=== PATIENT | male | born 1980 | race Hispanic/Latino ===

== ENCOUNTER 2018-02-06 11:52 | Inpatient (IN) ==
[2018-02-06 12:59] LABS: BASO# 0.01 X1000 (0.0-0.2); BASO% 0.1 % (0.0-0.8); EOS# 0.16 X1000 (0.0-0.7); EOS% 1.8 % (0.0-10.0); HEMATOCRIT 46.5 % (42.0-52.0); IMM GRAN# 0.03 X1000 (0.0-0.04); IMM GRAN% 0.3 % (0.0-0.5); LYMPH# 1.61 X1000 (1.2-3.4); LYMPH% 17.9 % (20.5-51.1); MCH 30.5 PG (27-31); MCHC 34.4 g/dL (33-37); MCV 88.7 FL (81-99); MONO# 0.71 X1000 (0.11-0.59); MONO% 7.9 % (1.7-9.3); MPV 10.6 FL (7.4-10.4); NEUT# 6.49 X1000 (1.4-6.5); PLT 260 X1000 (130-400); RBC 5.24 XMIL (4.7-6.1); RDW 12.5 % (11.5-14.5); WBC 9.01 X1000 (4.8-10.8)
[2018-02-06 13:14] LABS: INR 0.89; PROTIME 12.5 Seconds (11.0-16.0)
[2018-02-06 13:18] LABS: AGAP 17; ALBUMIN 4.1 g/dL (3.5-5.0); ALKALINE PHOSPHATASE 114 U/L (32-122); BUN 9 mg/dL (8-22); CALCIUM 9.8 mg/dL (8.8-10.2); CHLORIDE 99 mmol/L (98-107); COSMO 273; CREATININE 0.7 mg/dL (0.7-1.2); ESTIMATED GFR > 60; GLUCOSE 106 mg/dL (70-104); GOT 56 U/L (10-34); GPT 59 U/L (10-44); POTASSIUM 3.7 mmol/L (3.5-5.1); SODIUM 137 mmol/L (136-145); TCO2 21 mmol/L (25-35); TOTAL PROTEIN 8.5 g/dL (6.3-8.3)
[2018-02-06] MEDS ORDERED: NS 3,000 ML IV ONE (14:25)
[2018-02-06] MEDS ORDERED: VANCOMYCIN IV PER PHARMACY MISC SCH (14:45)
--- NOTE | 2018-02-06 14:59 | Diag Imaging Result Doc PS360 ---
EXAM: LOWER LEG-LEFT - 02/06/2018 HISTORY: cellulitis TECHNIQUE: Left lower leg four views COMPARISON: None. FINDINGS: There is no fracture identified. There are no erosive or destructive changes identified. There is no opaque foreign body identified. There is no obvious subcutaneous gas collection. IMPRESSION: Unremarkable exam. Electronically signed by Nicola Mohan 02/06/2018 2:56 PM
[2018-02-06] MEDS ORDERED: BOOSTRIX VACCINE IM ONE (15:06)
--- NOTE | 2018-02-06 15:28 | PROVIDER DOCUMENTATION ---
This chart was entered by Tiara Bartholomew Scribe, acting as scribe for Vel Thomas MD. HPI-Musculoskeletal Pain/Inj - GENERAL Chief Complaint: Extremity Injury Stated Complaint: LEFT LEG SWOLLEN AND INFECTED Time Seen by Provider: 02/06/18 14:14 Source: patient - HX OF PRESENT ILLNESS-MUSKULOSKELTAL Nature of Presenting Problem: 37 yom presents to ed with cc of lle pain and swelling. Language line was used pt reports he was at work 3 days ago at [employer] and cut his left lower extremity. Reports last night started swelling and becoming red. On arrival pt is tachy and has a fever of 100.00. Quality of Pain: reports: aching Severity in ED: moderate Onset/Duration: 3 days ago, last night Timing: still present, getting worse Review of Systems - Adult - REVIEW OF SYSTEMS - ADULT Constitutional: reports: fever. denies: chills, fatique Eyes: reports: no symptoms reported Ears, Nose, Mouth & Throat: reports: no symptoms reported Cardiovascular: denies: chest pain, irregular heart rate, PND, syncope Respiratory: denies: cough, shortness of breath, wheezing Gastrointestinal: reports: no symptoms reported Genitourinary: reports: no symptoms reported Musculoskeletal: reports: see HPI, other (LLE swelling and erythema). denies: joint pain, joint swelling, muscle weakness, neck pain Integumentary: reports: other (LLE swelling and erythema) Neurological: reports: no symptoms reported Psychiatric: reports: no symptoms reported Endocrine: reports: no symptoms reported Hematologic/Lymphatic: reports: no symptoms reported Allergic/Immunologic: reports: no symptoms reported All Other Systems: Reviewed and Negative Past History - Adult - PAST MEDICAL HISTORY-ADULT Review of Records: reports: Nursing Assessment Review, Medications Reviewed Major Childhood Illnesses: reports: denies history Cardiovascular: reports: denies history Respiratory: reports: denies history Gastrointestinal: reports: denies history Obstetrical/Gynecological: reports: denies history Genitourinary: reports: denies history Musculoskeletal: reports: denies history Neurological: reports: denies history Endocrine/Immune: reports: denies history Other Conditions: reports: denies history - IMMUNIZATION STATUS Childhood Immunizations: See Nurse Assessment Flu Vaccine: See Nurse Assessment - FAMILY HISTORY Family History: reviewed, not pertinent - SOCIAL HISTORY Smoking: cigarettes, less than 1 pack/day Provider spent 3-5 mins advising pt. on dangers of tobacco.: Discussed manners to quit use, and f/u contacts for add'l counseling. Substance Use: none/never Physical Exam-Injury Related - Physical Exam-Injury Related Initial Vital Signs Reviewed: Yes General Appearance: appears well, alert, no apparent distress Eyes: PERRL/EOMI, pink conjunctivae Head, Ears, Nose, Mouth & Throat: moist mucous membranes Neck: non-tender, full range of motion, supple, normal inspection Respiratory: chest non-tender, lungs clear, normal breath sounds, no pleuratic chest pain, no respiratory distress, no accessory muscle use Cardiovascular: regular rate, rhythm, tachycardia Peripheral Pulses: dorsalis-pedis (R): 2+, dorsalis-pedis (L): 2+ Abdominal Exam: non tender, soft, no organomegaly, no pulsatile mass Extremity: normal range of motion, non-tender, normal gait, erythema (LLE), swelling (LLE) Integumentary: normal color, other (LLE 3cm open jagged wound with swelling and erythema) Neurologic: grossly normal Psych/Mental Status: normal mood/affect, normal thought content, normal thought process, oriented x 3 - Glascow Coma Score Best Eye Response ([place]): (4) open spontaneously Best Verbal Response ([place]): (5) oriented Best Motor Response ([place]): (6) obeys commands [place] Total: 15 Progress - PLAN OF CARE/RESULTS Progress/Plan/Lab Results: Vital Signs - 8 hr 02/06/18 12:07 02/06/18 14:31 Temperature 100 F H 100 F H Pulse Rate 131 H 109 H Respiratory Rate 22 31 H Blood Pressure 138/93 140/87 O2 Sat by Pulse Oximetry 95 95 Laboratory Results - last 24 hr 02/06/18 02/06/18 02/06/18 12:36 12:36 12:36 WBC 9.01 RBC 5.24 Hgb 16.0 Hct 46.5 MCV 88.7 MCH 30.5 MCHC 34.4 RDW Std Deviation 12.5 Plt Count 260 MPV 10.6 H Immature Gran % (Auto) 0.3 Neut % (Auto) 72.0 Lymph % (Auto) 17.9 L [place] % (Auto) 7.9 Eos % (Auto) 1.8 Baso % (Auto) 0.1 Immature Gran # (Auto) 0.03 Neut # (Auto) 6.49 Lymph # (Auto) 1.61 [place] # (Auto) 0.71 H Eos # (Auto) 0.16 Baso # (Auto) 0.01 PT INR Sodium 137 Potassium 3.7 Chloride 99 Carbon Dioxide 21 L Anion Gap 17 BUN 9 Creatinine 0.7 Estimated GFR/1.73 m2 > 60 BUN/Creatinine Ratio 13 Glucose 106 H Calculated Osmolality 273 Calcium 9.8 Total Bilirubin 0.80 AST 56 H ALT 59 H Alkaline Phosphatase 114 Total Protein 8.5 H Albumin 4.1 Globulin 4.0 Albumin/Globulin Ratio 1.0 Plasma Lactate 2.3 H 02/06/18 12:36 WBC RBC Hgb Hct MCV MCH MCHC RDW Std Deviation Plt Count MPV Immature Gran % (Auto) Neut % (Auto) Lymph % (Auto) [place] % (Auto) Eos % (Auto) Baso % (Auto) Immature Gran # (Auto) Neut # (Auto) Lymph # (Auto) [place] # (Auto) Eos # (Auto) Baso # (Auto) PT 12.5 INR 0.89 Sodium Potassium Chloride Carbon Dioxide Anion Gap BUN Creatinine Estimated GFR/1.73 m2 BUN/Creatinine Ratio Glucose Calculated Osmolality Calcium Total Bilirubin AST ALT Alkaline Phosphatase Total Protein Albumin Globulin Albumin/Globulin Ratio Plasma Lactate Orders Category Date Time Status CHEST-1 VIEW [RAD] Stat Exams 02/06/18 15:08 Ordered LOWER LEG-LEFT [RAD] Stat Exams 02/06/18 14:29 Completed ABG [RESP] Routine Lab 02/06/18 15:11 Ordered ABSCESS CULTURE INC GRAM STAIN [RM] Routine Lab 02/06/18 15:12 Ordered BLOOD CULTURE [BLDCUL] Stat Lab 02/06/18 12:40 Ordered BLOOD CULTURE [BLDCUL] Stat Lab 02/06/18 14:26 Ordered CBC WITH DIFF [HEME] Stat Lab 02/06/18 12:36 Completed CK TOTAL [CHEM] Stat Lab 02/06/18 15:05 Ordered COMPREHENSIVE METABOLIC PANEL [CHEM] Stat Lab 02/06/18 12:36 Completed LACTATE, PLASMA [CHEM] Stat Lab 02/06/18 12:36 Completed LACTATE, PLASMA [CHEM] Stat Lab 02/06/18 15:36 Ordered MAGNESIUM [CHEM] Stat Lab 02/06/18 15:11 Uncollected PROTIME WITH INR [COAG] Stat Lab 02/06/18 12:36 Completed PTT [COAG] Stat Lab 02/06/18 15:05 Uncollected TROPONIN T Stat Lab 02/06/18 15:[address] W/POSS RFLX CULT [URINALYSIS] Stat Lab 02/06/18 15:12 Ordered WOUND CULTURE INC GRAM STAIN [RM] Routine Lab 02/06/18 15:09 Ordered ua [URINALYSIS PL W/POSS RFLX CULT] [URINALYSIS] Stat Lab 02/06/18 15:07 Uncollected 0.9% Sodium Chloride Inj [Ns] 3,000 ml Med 02/06/18 14:25 Active IV 999 mls/hr Diph,Pertuss(Acell),Tet Vac/Pf [Boostrix Vaccine] Med 02/06/18 15:06 Discontinued 0.5 ml IM .ONCE ONE Pharmacy Order [Vancomycin IV Per Pharmacy] Med 02/06/18 14:45 Active 1 each MISC DIRECTED Piperacillin/Tazobactam [Zosyn] 3.375 gm Med 02/06/18 14:45 Active 0.9% Sodium Chloride Inj [Ns] 50 ml IV Q6H Vancomycin 2,000 mg Med 02/06/18 16:00 Active 0.9% Sodium Chloride Inj [Ns] 500 ml IV Q12H Result Diagrams: 02/06/18 12:36 02/06/18 12:36 - XRAY 1 XRAY: Left XRAY Study: other (lower extremity) Impression: Normal (FINDINGS: There is no fracture identified. There are no erosive or destructive changes identified. There is no opaque foreign body identified. There is no obvious subcutaneous gas collection. IMPRESSION: Unremarkable exam. Electronically signed by Nicola Mohan 02/06/2018 2:56 PM) - CONSULTS/PCP/HOSPITALIST Notification #1 *Consult/PCP/Hospitalist*: Dr. Lamar Time Discussed: 14:30 Consult Disposition: Admit Departure - Departure Date of Disposition Decision: 02/06/18 Time of Disposition Decision: 14:30 DIAGNOSIS: Cellulitis Qualifiers: Site of cellulitis: extremity Site of cellulitis of extremity: lower extremity Laterality: left Qualified Code(s): L03.116 - Cellulitis of left lower limb Disposition: ADMITTED INPATIENT 09 Certified Medical Emergency: Emergent Condition: Stable Referrals and Follow-Ups: None,PCP [Primary Care Provider] - - Critical Care Note This patient required my direct & personal management of CC.: Yes Total Time (mins): 30 Critical Care Statement: This patient required my direct personal management to treat or rule out processes, the absence of which, could potentiallly result in sudden, clinically significant life or limb threatening deterioration. Attestation - Physician/ MARTA Attestation Patient care was provided by Advanced Practice Provider:: No The physician spent face to face time with patient:: Yes Advanced Practice Provider documentation review:: Supervising physician onsite and consulted in the evaluation and care of this patient. The physician did have a face to face encounter with the patient. This chart was documented by the indicated scribe, (Tiara Bartholomew Scribe) and accurately reflects the services I performed and decisions made by me, Vel Thomas MD, as attested by the provider's signature.
--- NOTE | 2018-02-06 15:36 | Diag Imaging Result Doc PS360 ---
EXAM: CHEST-1 VIEW - 02/06/2018 HISTORY: sepsis TECHNIQUE: Portable chest COMPARISON: None. FINDINGS: Heart size appears within normal limits. There are calcified right hilar lymph nodes from old granulomatous disease. There is no consolidation, pleural effusion, or pneumothorax identified. IMPRESSION: No evidence of acute disease. Electronically signed by Nicola Mohan 02/06/2018 3:33 PM
[2018-02-06] MEDS: ZOSYN 3.375 GM in NS 50 ML IV SCH ×2 (15:38→20:36)
[2018-02-06] MEDS ORDERED: VANCOMYCIN 2,000 MG in NS 500 ML IV SCH (16:00)
[2018-02-06 16:13] LABS: BILIRUBIN URINE NEGATIVE (NEGATIVE); BLOOD URINE 1+ (NEGATIVE); CLARITY SL. CLOUDY (CLEAR); COLOR AMBER; GLUCOSE URINE NEGATIVE (NEGATIVE); KETONE URINE TRACE mg/dL (NEGATIVE); LEUKOCYTES URINE 1+ (NEGATIVE); NITRITE URINE POSITIVE (NEGATIVE); PH URINE 6.5; PROTEIN URINE 2+(100 mg/dL) mg/dL (NEGATIVE); UROBILINOGEN URINE 4 mg/dL
[2018-02-06 16:23] LABS: URINE BACTERIA 1+ /HFP; URINE CAST NONE SEEN /LPF; URINE CRYSTAL NONE SEEN /HPF; URINE EPITHELIAL CELLS <10 /HPF (<10); URINE RBC <10 /HPF (<10); URINE SOURCE CLEAN CATCH; URINE WBC <10 /HPF (<10); URINE YEAST NONE SEEN /HPF
[2018-02-06 16:24] LABS: BE -0.4 mmoll (-3.0-3.0); BLOOD TYPE ARTERIAL; HCO3-(ACT) 24.5 mmoll (20.0-26.0); METHB 1.2 % (0.0-1.5); O2(CT) 19.6 mL/dL (15.0-23.0); PCO2(98.6) 33 mmHg (35-45); PO2(98.6) 80 mmHg (60-100); SAMPLE BLOOD; SAO2 97.2 % (95.0-100.0); THB 14.8 g/dL (11.5-17.4); pH(98.6) 7.45 (7.35-7.45)
[2018-02-06 16:28] LABS: ALLEN TEST YES; MODALITY CANNULA
--- NOTE | 2018-02-06 17:21 | HISTORY AND PHYSICAL ---
PRIMARY CARE PHYSICIAN: None. 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 HISTORY OF PRESENTING ILLNESS: This is a 37-year-old male who does not speak Wolof presents to [facility] ER with complaints of left lower extremity pain and swelling. 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 Last night it began to swell and become red, it is noted to be erythematous, edematous, warm to touch. He has a low-grade fever on arrival of 100, tachycardic at 131. Laboratory data was fairly unremarkable. No elevation in his white blood cells. He did have a mild elevation in his LFTs. His creatine kinase was 1460, plasma lactate was mildly elevated at 2.3 with normal being 2.2 so he will be admitted for further evaluation and treatment. PAST MEDICAL HISTORY: None. PAST SURGICAL HISTORY: None. FAMILY HISTORY: Reviewed and noncontributory. SOCIAL HISTORY: Currently lives with family. Smokes a half a pack of cigarettes a day. Denies any alcohol or illicit drug use. ALLERGIES: He has no known drug allergies. HOME MEDICATIONS: He does not list any routine medications at this time. LABORATORY DATA: Showed a white blood cell count of 9.01, hemoglobin 16, hematocrit 46.5, platelets 260,000, PT and INR 12.5 and 0.89, sodium 137, potassium 3.7, chloride 99, CO2 21, BUN of 9, creatinine 0.7, glucose 106, AST of 56, ALT 59, creatine kinase of 1460, plasma lactate of 2.3. We did do a left lower extremity x-ray that showed an unremarkable exam. Chest x-ray showed no evidence of acute disease. REVIEW OF SYSTEMS: He had a subjective fever. Denied any blurred vision, dizziness, chest pain, coughing, shortness of breath. Denied any abdominal pain, constipation, diarrhea, burning or hurting with urination. Was positive for left lower extremity pain. PHYSICAL EXAMINATION: On arrival he had a temperature of 100 degrees, pulse 131, respirations 22, blood pressure 138/93, saturating 95% on room air. Currently his heart rate is down to 109. GENERAL: This is a 37-year-old male lying in the bed. HEENT: Normocephalic, atraumatic. Normal ENT inspection. Oropharynx and nares are clear. Pupils are equal, round, reactive to light and accommodation. Extraocular movements are intact. NECK: Normal on inspection. Normal range of motion. LUNGS: Clear to auscultation bilaterally with equal lung expansion and chest wall movement. HEART: With regular rate and rhythm. No murmurs, rubs, or gallops. ABDOMEN: Soft, nontender, nondistended. Bowel sounds are present x4 quadrants. EXTREMITIES: Patient is noted to have to his left lower extremity on the acuña erythema, edema, warmth to touch. There is a 3 cm open jagged wound noted on the acuña also. MUSCULOSKELETAL: 5/5 strength in 4 extremities. NEUROLOGICAL: Cranial nerves 2-12 appear grossly intact. ASSESSMENT: 1. Left lower extremity cellulitis. 2. Rhabdomyolysis. 3. Sepsis secondary to #1. 4. Tobacco abuse. PLAN: He is being admitted to the medical unit at [facility], placed on vancomycin per pharmacy protocol, Zosyn 3.375 g IV q.6. Wound culture, abscess culture pending. Urinalysis pending. He was given a tetanus shot in the emergency room. We will recheck a CBC, BMP in the a.m. We will also place him on normal saline at 75 mL an hour. Dictated by MALACHI Argueta for Checo Lamar MD cc: MALACHI Argueta MD
[2018-02-06] MEDS: NS 1,000 ML IV SCH (18:31)
[2018-02-06] MEDS ORDERED: TYLENOL PO PRN (20:05)
[2018-02-06] MEDS ORDERED: ZOFRAN IV PRN (20:05)
[2018-02-06] MEDS: VANCOMYCIN 2,000 MG in NS 500 ML IV SCH (20:37)
--- NOTE | 2018-02-06 20:37 | HISTORY AND PHYSICAL ---
HISTORY AND PHYSICAL ADDENDUM: The patient is . He came in today because of pain in his left leg. 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 No previous history of infection. He is not diabetic. There is question, though, if he has a UTI as well. But he has no complaints about it. In any case, his left leg is swollen and erythematous and irritated, and he is in some degree of discomfort. We will admit him for cellulitis. There is no clear evidence of abscess at this point. Consider a Doppler tomorrow, although I think this is very clearly cellulitis of his left lower extremity. We will continue empiric antibiotics, vancomycin and Unasyn, and follow. If not much improved in the next day or two, may have to consider further imaging. This is a [id number] encounter note with Vangie Knox. cc: Checo Lamar MD
[2018-02-06] MEDS: NORCO-5 PO PRN (20:46)
[2018-02-07] MEDS: ZOSYN 3.375 GM in NS 50 ML IV SCH ×4 (01:55→20:08)
[2018-02-07 06:31] LABS: BASO# 0.02 X1000 (0.0-0.2); BASO% 0.2 % (0.0-0.8); EOS# 0.08 X1000 (0.0-0.7); EOS% 0.8 % (0.0-10.0); HEMATOCRIT 40.7 % (42.0-52.0); HEMOGLOBIN 13.8 g/dL (14.0-18.0); IMM GRAN# 0.02 X1000 (0.0-0.04); IMM GRAN% 0.2 % (0.0-0.5); LYMPH# 1.62 X1000 (1.2-3.4); LYMPH% 16.2 % (20.5-51.1); MCH 30.7 PG (27-31); MCHC 33.9 g/dL (33-37); MCV 90.4 FL (81-99); MONO# 0.85 X1000 (0.11-0.59); MONO% 8.5 % (1.7-9.3); MPV 10.5 FL (7.4-10.4); NEUT# 7.43 X1000 (1.4-6.5); NEUT% 74.1 % (42.2-75.2); PLT 258 X1000 (130-400); RDW 12.4 % (11.5-14.5); WBC 10.02 X1000 (4.8-10.8)
[2018-02-07] MEDS: NORCO-5 PO PRN ×2 (06:31→20:17)
[2018-02-07 06:39] LABS: AGAP 12; BUN 8 mg/dL (8-22); CALCIUM 8.7 mg/dL (8.8-10.2); CHLORIDE 102 mmol/L (98-107); COSMO 273; CREATININE 0.9 mg/dL (0.7-1.2); ESTIMATED GFR > 60; GLUCOSE 108 mg/dL (70-104); POTASSIUM 3.5 mmol/L (3.5-5.1); SODIUM 137 mmol/L (136-145); TCO2 23 mmol/L (25-35)
[2018-02-07 06:45] LABS: CK PROFILE 576 U/L (24-204)
[2018-02-07 07:12] LABS: CK INDEX 0.7 (0.0-2.5); CK-MB 4.26 ng/mL (0.0-5.0)
[2018-02-07] MEDS: VANCOMYCIN 2,000 MG in NS 500 ML IV SCH ×2 (09:01→20:47)
[2018-02-07] MEDS: NS 1,000 ML IV SCH (11:33)
[2018-02-07] MEDS ORDERED: LASIX PO ONE (16:22)
--- NOTE | 2018-02-07 16:48 | PROGRESS NOTE ---
DATE: 02/07/2018 SUBJECTIVE: Pain seems better. He is smiling. He has very limited [place]ian, so it is difficult to completely get all information, but he seems to be improved. He says it hurts when he ambulates. OBJECTIVE: Vital Signs: Blood pressure 100/60, heart rate 94, respiratory rate 20, temperature 98.7 degrees. Satting 97% on room air. Cardiovascular: Regular rate and rhythm. Pulmonary: Bilateral breath sounds. Clear to auscultation. Gastrointestinal: Abdomen was soft, nontender, nondistended. Bowel sounds are positive. LABORATORY DATA: White count 10, hemoglobin and hematocrit 13 and 40. Platelets 258. Basic was normal. CPK is down. Her micro blood, urine and Gram stain is all negative. PROBLEM LIST: 1. This is a left lower extremity cellulitis with no abscess at this point associated with trauma, but erythema is much improved since yesterday. I think he seems to be doing better from my standpoint. I think probably 1 more day of IV and we can transition him to oral tomorrow and if stable, then he can go home. 2. Sepsis that appears to be resolved. Fevers have abated as well. cc: Checo Lamar MD
[2018-02-08] MEDS: ZOSYN 3.375 GM in NS 50 ML IV SCH ×3 (02:28→14:33)
[2018-02-08 05:46] LABS: HEMATOCRIT 38.8 % (42.0-52.0); HEMOGLOBIN 13.1 g/dL (14.0-18.0); MCH 31.1 PG (27-31); MCHC 33.8 g/dL (33-37); MCV 92.2 FL (81-99); RBC 4.21 XMIL (4.7-6.1); RDW 12.5 % (11.5-14.5); WBC 9.28 X1000 (4.8-10.8)
[2018-02-08 06:05] LABS: AGAP 12; BUN 8 mg/dL (8-22); CALCIUM 8.9 mg/dL (8.8-10.2); CHLORIDE 104 mmol/L (98-107); CK TOTAL 237 U/L (24-204); COSMO 280; CREATININE 1.2 mg/dL (0.7-1.2); ESTIMATED GFR > 60; GLUCOSE 105 mg/dL (70-104); POTASSIUM 3.5 mmol/L (3.5-5.1); SODIUM 141 mmol/L (136-145); TCO2 25 mmol/L (25-35)
[2018-02-08] MEDS ORDERED: FLU VACCINE IM ONE (09:00)
--- NOTE | 2018-02-08 13:51 | Extremity Venous Study ---
EXAM: Venous U/S Left Leg HISTORY: swelling TECHNIQUE: Mendez scale, color Doppler, and duplex evaluation was performed. COMPARISON: None. FINDINGS: The deep veins of the left lower extremity demonstrate appropriate compressibility and augmentation. No intraluminal thrombus is visualized. There is no evidence for DVT. The superficial veins appear patent. IMPRESSION: No evidence for deep venous thrombosis left lower extremity. Electronically signed by Annelise Last 02/08/2018 1:48 PM
--- NOTE | 2018-02-08 15:00 | PROGRESS NOTE ---
DATE: 02/08/2018 SUBJECTIVE: He seems better. It is kind of hard to gauge if he is worse. He still has a lot of pain but, in any case, he seems to be doing okay. OBJECTIVE: Blood pressure is 120/71, heart rate 94, respiratory rate 18, temperature 97, oxygen saturation 93% on room air. Cardiovascular: Regular rate and rhythm. Pulmonary: Bilateral breath sounds clear to auscultation. GI was soft, nontender, nondistended. Bowel sounds are positive. LABORATORY DATA: White count is normal. Hemoglobin and hematocrit is 13 and 38, platelets 236,000. Chemistries look okay. CPK is coming down. PROBLEM LIST: 1. Left lower extremity cellulitis associated with a traumatic injury. It had looked remarkably better yesterday. Anticipate discharge but, today, it is just erythematous past his knee and up into his leg. He had just recently taken a shower; maybe there is some erythema associated with that, but it does not look better now. His vancomycin level is also fairly elevated, which we are readjusting his dose. We may consider switching him to daptomycin. Additionally, I am going to put him on some clindamycin. 2. Rhabdo; that seems better. I am just worried about giving him too much fluid because he already has a lot of swelling. DISPOSITION: Pending improvement in his clinical status. We will go ahead and image his leg and make sure that there are no issues. cc: Checo Lamar MD
[2018-02-08] MEDS: CLINDAMYCIN 600 MG/D5W 600 MG/50 ML IVPB IV SCH ×2 (15:59→23:45)
--- NOTE | 2018-02-08 16:17 | Diag Imaging Result Doc PS360 ---
EXAM: CT EXT LOWER LEFT W/CON HISTORY: worsening cellulitis TECHNIQUE: Axial images were obtained from just above the patella through the toes following IV contrast. 3-D postprocessing. COMPARISON: None. FINDINGS: There is diffuse skin thickening particularly involving the anterior and medial lower leg. There is diffuse subcutaneous septal thickening/edema throughout the lower leg and foot most prominent overlying the medial malleolus. No soft tissue gas is appreciated. No discrete fluid collection with wall enhancement is identified to suggest abscess. MRI with contrast could be considered for further evaluation of potential myositis/septic arthritis as indicated clinically. IMPRESSION: 1.Marked cellulitis. 2.No discrete abscess is appreciated. This exam was performed using automated exposure control, adjustment of mA or kV according to patient size, and/or use of iterative reconstruction technique. Electronically signed by Annelise Last 02/08/2018 4:15 PM
[2018-02-08] MEDS: CULTURELLE PO SCH ×2 (18:48→20:53)
[2018-02-08] MEDS: NORCO-5 PO PRN (20:52)
[2018-02-09] MEDS ORDERED: LOVENOX SUBQ SCH (06:00)
[2018-02-09] MEDS: CLINDAMYCIN 600 MG/D5W 600 MG/50 ML IVPB IV SCH (06:07)
[2018-02-09 06:30] LABS: BASO# 0.01 X1000 (0.0-0.2); BASO% 0.1 % (0.0-0.8); EOS# 0.36 X1000 (0.0-0.7); EOS% 4.4 % (0.0-10.0); HEMATOCRIT 39.9 % (42.0-52.0); HEMOGLOBIN 13.3 g/dL (14.0-18.0); IMM GRAN# 0.02 X1000 (0.0-0.04); IMM GRAN% 0.2 % (0.0-0.5); LYMPH# 1.77 X1000 (1.2-3.4); LYMPH% 21.6 % (20.5-51.1); MCH 30.9 PG (27-31); MCHC 33.3 g/dL (33-37); MCV 92.8 FL (81-99); MONO# 0.86 X1000 (0.11-0.59); MONO% 10.5 % (1.7-9.3); MPV 11.1 FL (7.4-10.4); NEUT# 5.19 X1000 (1.4-6.5); NEUT% 63.2 % (42.2-75.2); PLT 289 X1000 (130-400); RDW 12.4 % (11.5-14.5); WBC 8.21 X1000 (4.8-10.8)
[2018-02-09 06:56] LABS: AGAP 11; BUN 8 mg/dL (8-22); CALCIUM 9.1 mg/dL (8.8-10.2); CHLORIDE 106 mmol/L (98-107); COSMO 287; CREATININE 1.1 mg/dL (0.7-1.2); ESTIMATED GFR > 60; GLUCOSE 100 mg/dL (70-104); SODIUM 145 mmol/L (136-145); TCO2 28 mmol/L (25-35)
[2018-02-09] MEDS: VANCOMYCIN 2,000 MG in NS 500 ML IV SCH ×2 (09:24→10:14)
[2018-02-09] MEDS: CULTURELLE PO SCH ×2 (09:24→21:47)
[2018-02-09] MEDS ORDERED: CULTURELLE FOR KIDS PO SCH (13:00)
[2018-02-09] MEDS ORDERED: CUBICIN 600 MG in NS 100 ML IV SCH (13:00)
[2018-02-09] MEDS: NAFCIL 2 GM in NS 100 ML IV SCH (13:59)
[2018-02-09] MEDS ORDERED: CLINDAMYCIN 900 MG/D5W 900 MG/50 ML IVPB IV SCH (15:00)
--- NOTE | 2018-02-09 15:35 | Diag Imaging Result Doc PS360 ---
EXAM: MRI LOWER EXT W/WO CON-LEFT - 02/09/2018 HISTORY: myositis TECHNIQUE: MRI left lower leg without with contrast. Images are obtained prior to and following gadolinium administration. COMPARISON: 02/08/2018 CT left lower leg FINDINGS: There is subcutaneous edema along the left lower leg which is most prominent medially and is compatible with cellulitis. This enhances mildly following gadolinium administration. There is possibly small sinus tract into the anterior subcutaneous tissues at the proximal lower leg anterior to the tibia. There is no discrete abscess identified. There is no bony erosion or bone marrow edema identified. There is no substantial intramuscular edema identified. IMPRESSION: Cellulitis at left lower leg, medially. Possible small sinus tract into anterior subcutaneous tissues at proximal lower leg anterior to the tibia. No indication of osteomyelitis. No discrete myositis. Electronically signed by Nicola Mohan 02/09/2018 3:32 PM
[2018-02-09] MEDS ORDERED: LASIX PO ONE (16:48)
[2018-02-09] MEDS ORDERED: XYLOCAINE-MPF 2% ONE (18:23)
[2018-02-10] MEDS: NAFCIL 2 GM in NS 100 ML IV SCH ×7 (03:03→22:30)
--- NOTE | 2018-02-10 04:47 | OPERATIVE NOTE ---
PROCEDURE DATE: 02/09/2018 PREOPERATIVE DIAGNOSIS: Left leg cellulitis and abscess. POSTOPERATIVE DIAGNOSIS: Left leg cellulitis and abscess. PROCEDURE: Incision and drainage of left leg abscess. SURGEON: Zackery Arce MD ESTIMATED BLOOD LOSS: 5 mL. COMPLICATIONS: None apparent. FINDINGS: Small amount of purulent fluid was obtained. TECHNIQUE: The skin was prepped with Betadine and sterile drape was placed around the wound. 2% lidocaine was used to anesthetize the skin and subcutaneous tissues around the wound. An 11 blade was used to make an incision around the fluctuant area. I then placed a hemostat in the wound, and followed two tracks medially and laterally, and opened those up as well sharply. There was a small amount of pus drained. The wound was then washed out with Betadine and packed with a 4 x 4 gauze. There were no apparent complications. cc: Zackery Arce MD
--- NOTE | 2018-02-10 04:54 | GENERAL SURGERY CONSULTATION ---
DATE: 02/09/2018 REASON FOR CONSULTATION: Left leg infection, possible abscess. 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 A piece of metal cut his leg. He presented to the ER a few days later with a swollen, red area of the leg, low-grade fever and tachycardia. His creatine kinase was elevated. He subsequently has been placed on vancomycin, then daptomycin and clindamycin, now on nafcillin. He has had imaging, including a lower extremity x-ray, then a lower extremity CT yesterday, and then a lower extremity MRI today, all of which show significant cellulitis, but no discrete abscess or myositis. Clinically, he continues to have significant redness, warmth, swelling, and tenderness with now purulent drainage from the injury site. PAST MEDICAL HISTORY: None. PAST SURGICAL HISTORY: None. HOME MEDICATIONS: None. ALLERGIES: No known drug allergies. SOCIAL HISTORY: He smokes half a pack of cigarettes per day. No alcohol or illicit drug use. FAMILY HISTORY: Reviewed and noncontributory. LABORATORY DATA: White blood cell count 8, hemoglobin 13, hematocrit 89, platelet count 289,000. Electrolytes reviewed and normal. IMAGING: Reviewed and as described above in the HPI. PHYSICAL EXAMINATION: Vital Signs: Temperature 98 degrees, pulse 86, respirations 20, blood pressure 119/70, O2 saturation 98%. General: Well-developed, well-nourished, male in no distress, who looks his stated age. HEENT: Normocephalic, atraumatic. Extraocular muscles intact. Pupils equal, round, and reactive to light. Sclerae anicteric. Moist mucous membranes. Neck: Supple. No thyromegaly. Cardiovascular: Regular rate and rhythm. Respiratory: Bilaterally equal breath sounds. No work of breathing. Gastrointestinal: Soft, nontender, nondistended. No organomegaly or mass. Musculoskeletal: Moves all extremities equally except for pain in the left lower extremity. Extremities: There is 2+ pitting edema in the left lower extremity, with erythema and warmth from the ankle up just to the medial aspect of the knee. There is a open wound in the mid anterior left lower leg with a small amount of purulent drainage. He is very tender around it. ASSESSMENT AND PLAN: A 37-year-old male with marked left lower extremity cellulitis and small abscess after blunt and sharp trauma. I will plan incision and debridement at the bedside today. I have discussed the risks and benefits with him, with the language line. He understands and agrees to proceed. cc: Zackery Arce MD
[2018-02-10 06:55] LABS: BASO# 0.03 X1000 (0.0-0.2); BASO% 0.4 % (0.0-0.8); EOS# 0.31 X1000 (0.0-0.7); EOS% 4.1 % (0.0-10.0); HEMATOCRIT 39.5 % (42.0-52.0); HEMOGLOBIN 13.1 g/dL (14.0-18.0); IMM GRAN# 0.01 X1000 (0.0-0.04); IMM GRAN% 0.1 % (0.0-0.5); LYMPH# 1.82 X1000 (1.2-3.4); LYMPH% 24.1 % (20.5-51.1); MCH 30.5 PG (27-31); MCHC 33.2 g/dL (33-37); MCV 91.9 FL (81-99); MONO# 0.87 X1000 (0.11-0.59); MONO% 11.5 % (1.7-9.3); MPV 10.7 FL (7.4-10.4); NEUT% 59.8 % (42.2-75.2); PLT 332 X1000 (130-400); RDW 12.2 % (11.5-14.5); WBC 7.54 X1000 (4.8-10.8)
[2018-02-10 07:24] LABS: AGAP 14; BUN 11 mg/dL (8-22); CALCIUM 9.1 mg/dL (8.8-10.2); CHLORIDE 103 mmol/L (98-107); COSMO 283; ESTIMATED GFR > 60; GLUCOSE 100 mg/dL (70-104); POTASSIUM 3.9 mmol/L (3.5-5.1); SODIUM 142 mmol/L (136-145); TCO2 25 mmol/L (25-35)
[2018-02-10] MEDS: CULTURELLE PO SCH ×2 (09:23→21:56)
--- NOTE | 2018-02-10 22:24 | PROGRESS NOTE ---
DATE: 02/10/2018 SUBJECTIVE: He is much better today. Again he has done this before. He has improved drastically and then worsened but. OBJECTIVE: Blood pressure 134/78, heart rate of 89, respiratory rate 18, temperature is afebrile, blood pressure is stable. LABORATORY DATA: White count 7, hemoglobin and hematocrit 13, 39, platelets 332,000. Basic was normal. PROBLEM LIST: 1. Methicillin sensitive Staphylococcus aureus cellulitis. He seems to be doing better on nafcillin alone. I think we could discharge him on dicloxacillin for another 10 days tomorrow if he is improved. I greatly appreciate Dr. Arce's intervention that seems to have also helped. [facility]. 2. Disposition pending improvement. Anticipate discharge tomorrow. cc: Checo Lamar MD
--- NOTE | 2018-02-11 02:31 | GENERAL SURGERY PROGRESS NOTE ---
DATE: 02/10/2018 SUBJECTIVE: The patient says his pain in his leg has decreased slightly, but still hurts a lot. OBJECTIVE: Vital Signs: He is afebrile. Vital signs are stable. General: He is awake, alert, and oriented x3. No acute distress. Extremities: The left leg remains red, somewhat swollen, and very tender. I did not see any purulent drainage from the wound. MICROBIOLOGY: He has a MSSA growing from the wound. I would continue IV antibiotics and give this some more time, but no further surgical plans at this time. cc: Zackery Arce MD
[2018-02-11] MEDS: NAFCIL 2 GM in NS 100 ML IV SCH ×2 (03:01→05:16)
--- NOTE | 2018-02-11 07:21 | PROGRESS NOTE ---
DATE: 02/10/2018 SUBJECTIVE: Patient has no focal complaints. OBJECTIVE: Blood pressure is 147/87, heart rate of 102, respiratory rate 18, temperature 97.6 degrees. Overnight he did get hypotensive into the 80s systolic without a clear etiology, possible sepsis of course.Cardiovascular: Regular rate and rhythm. Pulmonary: Bilateral breath sounds. Clear to auscultation. GI: Soft, nontender, nondistended. Bowel sounds are positive. LABORATORY DATA: White count is 7, hemoglobin and hematocrit 7 and 23, platelets 373,000. Basic was normal, sugars down to 219, creatinine is down to 1.1, gap is down to 11. Urine actually looks pretty clear. B12 though is 150 which is low. PROBLEM LIST: 1. Sepsis presumably associated with possibly diabetic foot ulcer. We will continue vanc and Zosyn. His wound looks pretty good. Dr. Sanches has evaluated and feels like this is likely related to that he will need surgery and debridement so we are working on transferring him to [facility] [place] for that process. 2. Transient hypotension kind of unclear, at this point it is resolved. He did require some fluids which have since improved. We will continue to monitor. There is not a clear source of infection blood, urine is clear. Foot culture is also pending. He is on empiric antibiotics. 3. Anemia which has progressed overnight although no gross evidence of bleeding. We have a heme check. I am going to order 1 unit of blood. He has been anemic before. When he was discharged he was 8 and 27 today 7.4 and 23.6, he does look somewhat iron deficient although the data is most consistent with iron anemia of chronic insufficiency. He is also B12 deficient although we checked those labs about a month ago and they were normal but I am going to go and supplement B12 and probably iron. 4. Will continue to follow closely until we know he has no bleeding. I am going to hold off on anticoagulation. Will do SCDs and give him Protonix and follow. 5. Disposition. Pending his clinical status. He is being transferred to [facility] [place] for further management. cc: Checo Lamar MD
[2018-02-11] MEDS: CULTURELLE PO SCH (09:50)
[2018-02-11] MEDS ORDERED: KEFZOL 1 GM/D5W 1 GM/50 ML IVPB IV SCH (12:30)
[2018-02-11 15:06] VITALS: BP 118/71
--- NOTE | 2018-02-12 00:24 | DISCHARGE SUMMARY ---
ADMISSION DATE: 02/06/2018 DISCHARGE DATE: 02/11/2018 DISCHARGE DIAGNOSIS: Methicillin sensitive Staphylococcus aureus cellulitis. PROCEDURES: Bedside incision and drainage. CONSULTATIONS: Dr. Arce. Briefly this is a 37-year-old gentleman who came in for evaluation for treatment with a left lower extremity cellulitis. He had injury to his leg at work. He works in a recycling plant. Had significant erythema. Initially he improved with vancomycin and Unasyn but then on the 3rd day he just clinically deteriorated very quickly for unknown reasons. We changed his antibiotics to clindamycin. His vancomycin level had been a bit elevated so that had been not re- dosed. He had some very mild rhabdo probably related to muscle injury. We did a CT which was negative for abscess. He did have cellulitis. We did an MRI that was also negative for myositis or fasciitis. I consulted Dr. Arce who made an open I and D and recommended treatment. His cultures came back at that point for MSSA and we switched him to nafcillin and he clinically improved. He did develop some itching reportedly with nafcillin but no rash. It was kind of unclear if it was true reaction. In any case, I am going to discharge him on Keflex. He has been on that since he has been here. Will do that for 10 days and see how he does. DISCHARGE CONDITION: Is stable. FOLLOWUP: With Dr. Arce in 1 to 2 weeks considering the wound and we will see how he does. This is a service admission. cc: Checo Lamar MD
== END 2018-02-11 19:16 | disposition home or self-care (01) | DRG 872 ==
LOC: P.ED 11:52 → P.EDIPHOLD 16:20
PROVIDERS: ATTEND Internal Medicine
CPT/HCPCS: 36415; 71010; 71045; 73590; 73701; 73720; 80048; 80053; 80202; 81001; 82550; 82553; 82805; 83605; 83735; 84484; 85025; 85027; 85610; 85730; 87040; 87070; 87077; 87088; 87186; 90471; 90715; 93971; 96361; 96365; 99285; A9270; A9579; J0690; J1650; J2543; J3370; J7030; J7040; Q9967; S0032